=== PATIENT | female | born 2000 | race Caucasian/White ===

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

== ENCOUNTER 2024-01-28 15:11 | Emergency (ER) | payer OTHER | END 2024-01-28 17:25 | disposition home or self-care (01) | LOC: NAV ERS 15:11 | DX: S33.5XXA Sprain of ligaments of lumbar spine, initial encounter (principal); S13.4XXA Sprain of ligaments of cervical spine, initial encounter; V49.9XXA Car occupant (driver) (passenger) injured in unspecified traffic accident, initial encounter | CPT/HCPCS: 72125; 72131 ==